=== PATIENT | male | born 1980 | race Caucasian/White ===

== ENCOUNTER → 2017-04-05 13:25 | Outpatient (POV) | payer OTHER, SELFPAY | PROVIDERS: Visit Provider Dermatology | DX: Z00.00 Encounter for general adult medical examination without abnormal findings (principal) ==

== ENCOUNTER 2018-03-15 13:10 | Outpatient (CLI) | payer SELFPAY | END 2018-03-15 14:32 | disposition home or self-care (01) | PROVIDERS: Visit Provider Nurse Practitioner Family | DX: Z02.4 Encounter for examination for driving license (principal) ==

== ENCOUNTER → 2019-05-22 09:45 | Outpatient (CLI) | payer SELFPAY ==
[2019-05-22 10:51] LABS: Basophils # 0.1 K/mm3 (0-0.2); Basophils % 0.6 % (0.1-2.0); Eosinophils # 0.3 K/mm3 (0.0-0.4); Eosinophils % 3.5 % (0.1-12.0); Hematocrit 44.6 % (42.0-52.0); Hemoglobin 14.4 g/dL (14.1-18.0); Lymphocytes # 2.9 K/mm3 (0.7-4.5); Lymphocytes % 35.1 % (10-50); Mean Corpuscular HGB Conc 32.3 g/dL (31.8-35.4); Mean Corpuscular Hemoglobin 30.3 pg (27.0-31.2); Mean Corpuscular Volume 93.8 fl (80-94); Monocytes # 0.5 K/mm3 (0.1-1.0); Monocytes % 5.9 % (1.7-9.3); Neutrophils # 4.6 K/mm3 (1.8-7.8); Neutrophils % 54.9 % (37.0-80.0); Platelet Count 213 K/mm3 (142-424); Red Blood Count 4.75 M/mm3 (4.60-6.20); White Blood Count 8.4 K/mm3 (4.8-10.8)
[2019-05-22 11:33] LABS: Chloride 105 mmol/L (98-107); Sodium 141 mmol/L (136-145)
[2019-05-22 11:34] LABS: Potassium 5.1 mmoL/L (3.5-5.1)
[2019-05-22 11:36] LABS: Alanine Aminotransferase 35 U/L (12-78); Albumin Level 4.3 g/dl (3.5-5.0); Albumin/Globulin Ratio 1.5 (1.1-1.8); Alkaline Phosphatase 78 U/L (38-126); Anion Gap 12.1 mEq/L (5-15); Aspartate Amino Transferase 31 U/L (17-59); Bilirubin,Total 0.3 mg/dl (0.2-1.3); Blood Urea Nitrogen 13 mg/dl (9-20); Calcium 9.1 mg/dl (8.4-10.2); Carbon Dioxide 29 mmol/L (22.0-30.0); Cholesterol 161 mg/dl (140-200); Estimated Glomerular Filt Rate 93 ml/min (>60); GFR (African American) 113 ML/MIN (>60); Globulin 2.8 g/dL (1.3-3.2); Glucose 89 mg/dl (74-100); Total Protein,Serum 7.1 g/dl (6.3-8.2); Triglycerides 152 mg/dl (30-150); VLDL Cholesterol 30 mg/dL (0-40)
[2019-05-22 11:37] LABS: Chol/HDL Ratio 4.9 (1-3.5); HDL Cholesterol 33 mg/dl (40-60); Magnesium 2.1 mg/dl (1.6-2.3)
[2019-05-22 11:47] LABS: Direct LDL Cholesterol 116.84 mg/dL (100-129)
[2019-05-22 12:04] LABS: Troponin I < 0.01 ng/ml (0.00-0.034)
[2019-05-22 12:06] LABS: Thyroid Stimulating Hormone 1.28 uIU/mL (0.465-4.68)
[2019-05-23 12:03] LABS: Myoglobin <21 ng/mL (28-72)
== END ==
PROVIDERS: Visit Provider Family Medicine
DX: R07.9 Chest pain, unspecified (principal)
CPT/HCPCS: 36415; 80053; 80061; 83735; 83874; 84443; 84484; 85025

== ENCOUNTER → 2019-05-29 09:24 | Outpatient (CLI) | payer BC, SELFPAY ==
--- NOTE | 2019-05-29 10:00 | CA_ITS ---
APPROVED REPORT Exam: Exercise Treadmill Technologist: Eufemia Caraballo, Ht: 6 ft 1 in Wt: 282 lbs BSA: 2.49 m2 HR: 70 bpm BP: 119/78 mmHg Rhythm: NORMAL SINUS RHYTHM Indications: CP Medical History Cardiac Risk Factors: Smoking Stress Test Details Test: Nohemi HR Resting HR: 81 bpm Max Heart Rate (APMHR): 180 bpm Max HR Achieved: 144 bpm Target HR (85% APMHR): 153 bpm % of APMHR: 80 Recovery HR: 115 bpm BP Resting BP: 119.0/78.0 mmHg Max BP: 152.0/75.0 mmHg Recovery BP: 160.0/80.0 mmHg ECG Resting ECG: NORMAL SINUS RHYTHM Clinical Exercise duration: 07:29 min Highest Stage Achieved: Exercise capacity: 10.1 METs Stress ECG Conclusion PATIENT EXERCISED 7:29 ON NOHEMI PROTOCOL STOPPING DUE TO SOA AND FATIGUE. PATIENT HAD MILD VAGUE CHEST DISCOMFORT IMMEDIATELY POST EXERCISE. NO ARRHYTHMIAS/ECTOPY. NORMAL ST RESPONSE TO EXERCISE. NORMAL GXT TO HR ACHIEVED(80% OF PM). GXT ONLY( NO IMAGING) Electronically signed by : Charles Carrera, 06/02/2019 08:04:55
== END ==
PROVIDERS: PCP Family Medicine; Visit Provider Nurse Practitioner Family
DX: R07.9 Chest pain, unspecified (principal)
CPT/HCPCS: 93017

== ENCOUNTER → 2020-01-17 11:53 | Outpatient (CLI) | payer BC, SELFPAY ==
--- NOTE | 2020-01-17 12:01 | XR_ITS ---
PROCEDURE: XR CHEST PORTABLE CLINICAL HISTORY: COVID 19 Fever COMPARISON: No exams were available for comparison FINDINGS: The cardiomediastinal silhouette and pulmonary vascularity are within normal limits. The lungs are clear without infiltrates, suspicious nodules, or pleural effusions. No acute bony abnormalities. IMPRESSION: No acute findings. Dictated by: Seth Angela MD 01/17/2020 12:26 Seth Angela MD in [place] 01/17/2020 12:26
[2020-01-18 08:41] LABS: Covid-19 Nasal PCR Sendout UK Not Detected
== END ==
PROVIDERS: PCP Family Medicine; Visit Provider Family Medicine
DX: Z03.818 Encounter for observation for suspected exposure to other biological agents ruled out (principal)
CPT/HCPCS: 71045; U0003

== ENCOUNTER → 2020-11-28 18:54 | Outpatient (CLI) | payer BC, SELFPAY | PROVIDERS: PCP Family Medicine; Visit Provider Physician Assistant | DX: Z20.822 Contact with and (suspected) exposure to COVID-19 (principal) | CPT/HCPCS: U0003 ==

== ENCOUNTER → 2022-10-12 11:49 | Outpatient (CLI) | payer OTHER, SELFPAY ==
--- NOTE | 2022-10-12 12:03 | XR_ITS ---
FINAL REPORT CLINICAL HISTORY: PAIN FINDINGS: LEFT KNEE SERIES Three views of the left knee were obtained. There is no acute fracture or dislocation. There are postoperative changes of an anterior cruciate ligament repair. There is mild degenerative change present. There is a probable 11 mm loose body in the intercondylar region. There is no soft tissue abnormality. IMPRESSION: Postoperative changes as stated above. Mild degenerative change. Probable 11 m loose body in the intercondylar region. Reviewed, Interpreted and Dictated by Fransisco Polanco III, MD Transcribed by Beth Nichole Authenticated and [facility]
== END ==
PROVIDERS: PCP Family Medicine; Visit Provider Nurse Practitioner Family
DX: M25.562 Pain in left knee (principal)
CPT/HCPCS: 73562

== ENCOUNTER 2022-10-12 12:38 | Outpatient (RCR) | payer OTHER, SELFPAY | END 2022-10-12 13:45 | disposition home or self-care (01) | LOC: PT 12:38 | PROVIDERS: Visit Provider Nurse Practitioner Family | DX: M25.562 Pain in left knee (principal); M25.462 Effusion, left knee; Z98.890 Other specified postprocedural states | CPT/HCPCS: 97760 ==

== ENCOUNTER 2022-11-20 11:04 | Emergency (ER) | payer OTHER, SELFPAY ==
[2022-11-20 11:13] VITALS: BP 129/90; PULSE 75; RESP 19; TEMP 37.2; O2SAT 97; BMI 39.2
--- NOTE | 2022-11-20 11:29 | XR_ITS ---
FINAL REPORT CLINICAL HISTORY: injury COMPARISON: None FINDINGS: There is no acute fracture or dislocation. The joint spaces are intact. There is no soft tissue abnormality. A small plantar calcaneal spur is present. IMPRESSION: No acute fracture Reviewed, Interpreted and Dictated by Daniel Washington MD Transcribed by Marita Blackwood Authenticated and [facility]
--- NOTE | 2022-11-20 11:54 | PC.NURSE ---
rounded on pt at this time, pt states no needs
--- NOTE | 2022-11-20 12:53 | HMH.EDGENADL ---
Discharge Plan Disposition Patient Disposition: Home, Self-Care Condition: Good Referrals Follow up/Referrals: Artie Acharya MD [Primary Care Provider] - See instructions Roger Goncalves DO [Staff Physician] - See instructions Activity Restrictions/Add. Instructions Additional Instructions/Restrictions: You were evaluated in the emergency department today. Please follow-up with orthopedics for reassessment should your foot pain persist. At this time, no broken bones are noted on x-ray. Take Tylenol and ibuprofen at home as needed for pain. Use the crutches provided to you as needed if you have trouble bearing weight. Rest, ice, and elevate the area is much as possible. We are providing you with a hard sole shoe to use at home as needed for pain with walking. Return to the emergency department for any new or worsening symptoms. Clinical Impressions Clinical Impression: Contusion of foot, right, Crush injury of right foot Stand Alone Forms Stand Alone Forms: Work/School Release Instructions Patient Instructions: DI for Foot Pain, DI for Foot Sprain Discharge ED Provider: Larisa Ballard General Adult HPI General Chief complaint: Extremity Injury, Lower Stated complaint: [id number] right foot pain Time Seen by Provider: 11/20/22 11:57 Mode of Arrival: Wheelchair Source of Information: Patient Limitations: No Limitations Description of Symptoms (Recalled from ER Triage Doc. by RN): 42 yo M prsents to ED with c/o right foot pain. 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 there was a piece of epquipement that was being hauled by a bobcat. the piece of equipment fell off the bobcat and landed on the middle part of his right foot History of Present Illness HPI narrative: This patient is a 42-year-old male who denies significant past medical history presented to the emergency department for evaluation with concern for right foot pain. 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 Most of his pain is on the medial aspect of his forefoot just proximal to his big toe. He denies any other injuries. He was well prior to this. His pain is currently under control. His pain worsens with any attempted weightbearing. He denies any numbness, tingling, or other issues. No open wounds noted. Related Data Allergies Allergy/AdvReac Type Severity Reaction Status Date / Time NO KNOWN ALLERGIES Allergy Uncoded 03/20/17 14:35 [facility] Disclaimer: The information contained in this section may have been updated after the patient was seen, as this information can be updated by other users. Social History Smoking Status: Current every day smoker alcohol intake: never current occupational status: employed Travel in the last 8 weeks: None ROS Obtained: Yes All systems reviewed & no additional complaints except as documented Physical Exam General General appearance: alert and in no apparent distress Head Head exam: atraumatic and normocephalic Eye Eye exam: Present normal appearance, PERRL and EOMI ENT ENT exam: Present normal exam, normal oropharynx, mucous membranes moist and normal external ear exam Neck Neck exam: Present normal inspection, full ROM and trachea midline; Absent tenderness Chest Chest inspection: Present normal inspection and symmetric chest wall rise; Absent tenderness Respiratory Respiratory exam: Present normal lung sounds bilaterally; Absent respiratory distress, wheezes, stridor or accessory muscle use Cardiovascular Cardiovascular exam: Present regular rate and normal rhythm Abdominal Exam Abdominal exam: Present soft; Absent distention, tenderness or guarding Extremities Exam Extremities exam: Present normal inspection, full ROM and normal capillary refill; Absent tenderness or edema Expanded Lower Extremity Exam Right: Foot/toe exam: Present tenderness,
--- NOTE | 2022-11-20 12:54 | PC.NURSE ---
contacted rad to check on status of xray reading, reports is still in a locked status.
[2022-11-20 13:44] VITALS: BP 125/78; PULSE 80; RESP 17; TEMP 36.8; O2SAT 98
--- NOTE | 2022-12-05 02:42 | PC.NURSE ---
chart accessed for demographics for ortho papers
== END 2022-11-20 13:45 | disposition home or self-care (01) ==
PROVIDERS: Emergency Provider Emergency Medicine; PCP Family Medicine
DX: S97.81XA Crushing injury of right foot, initial encounter (principal); S90.31XA Contusion of right foot, initial encounter; W20.8XXA Other cause of strike by thrown, projected or falling object, initial encounter; Y99.0 Civilian activity done for income or pay; F17.200 Nicotine dependence, unspecified, uncomplicated
CPT/HCPCS: 73620; 99283

== ENCOUNTER 2024-11-04 11:46 | Emergency (ER) | payer OTHER, SELFPAY ==
[2024-11-04] VITALS (8 sets, daily range): BP systolic 106–140; BP diastolic 73–96; PULSE 65–76; RESP 16; TEMP 36.9; O2SAT 95–100; BMI 38.5
--- NOTE | 2024-11-04 11:58 | HMH.EDGENADL ---
Discharge Plan Disposition Patient Disposition: Home, Self-Care Condition: Good Referrals Follow up/Referrals: Provider,Referral, [Referring, Medical] - See instructions Activity Restrictions/Add. Instructions Additional Instructions/Restrictions: Please follow-up with your family physician in the upcoming days, please follow-up with with repeat x-rays if symptomatology persist more than 7 to 10 days, please utilize ibuprofen Tylenol as needed for symptomatic relief. Clinical Impressions Clinical Impression: Fall, Costochondritis, Muscle strain of left forearm Instructions Patient Instructions: DI for Costochondritis, DI for Forearm Muscle Strain Print Language Print Language: Kenyan Discharge ED Provider: Sven Coker General Adult HPI <ROSALINDA Penn - Last Filed: 11/04/24 14:48> General Chief complaint: Fall Stated complaint: WC fell off tractor, left arm 11/04/2024 Time Seen by Provider: 11/04/24 11:50 Mode of Arrival: Ambulatory Source of Information: Patient Limitations: No Limitations History of Present Illness HPI narrative: 44 year old male presents to the emergency department after falling off this stationary tractor about 1-2 hours ago. Patient states that he was cleaning off the back when his foot slipped and fell off and onto the ground. He states the tractor is about 3 feet off the ground. He states that he fell on his right side then rolled onto his left side. He complains of right side/rib pain as well as left forearm/upper arm pain. He denies numbness or tingling on his right arm and hand but states there is some tingling on his left arm. He denies hitting is head, loss of consciousness, falling on an outstretched hand, chest pain, shortness of breath, headache, no presyncopal or syncopal event, no abdominal pain, no upper back pain, no neck pain, no lower back pain, no other upper or lower extremity injury, no urinary bladder or bowel dysfunction, no saddle anesthesia. He has no pertinent past medical history, takes no other medications at home, however states he does not see a doctor much. He states he smokes 1ppd, denies alcohol or illicit drug use. Initial triage vitals are unremarkable. Please note that above description of symptoms, in this electronic medical record under categorization of recalled from ER triage doctor by RN are reflective of an initial nursing assessment, however, is not reflective of my full history and physical exam that was personally taken and clarified. Consequentially, this preceding description of symptoms, which may include the patient's categorized chief complaint in the EMR, do not reflect my personal clinical impression, and the ultimate description of history of present illness and patient stated complaints should be deferred to this section of the note. Unless stated otherwise or congruent with this section of the note, additional signs, symptoms, or incongruence should be interpreted as inaccurate with my clinical impression. Onset (ago): hour(s) Related Data Allergies Allergy/AdvReac Type Severity Reaction Status Date / Time No Known Allergies Allergy Verified 11/04/24 12:38 [facility] <ROSALINDA Penn - Last Filed: 11/04/24 14:48> [facility] Disclaimer: The information contained in this section may have been updated after the patient was seen, as this information can be updated by other users. Social History (Updated 11/20/22 @ 13:31 by Larisa Ballard DO) Smoking Status: Current every day smoker alcohol intake: never current occupational status: employed Travel in the last 8 weeks?: None Have you lived/traveled outside US in past 30 days?: No Contact w/someone who lives/traveled outside US past 30 days?: No Exposure to someone with infectious disease in past 14 days?: No Do you have a fever (greater than 100.4 F or 38 C)?: No Have you tested positive for COVID-19?: No Exposed to someone with COVID-19 in past 14 days?: No Do you have a sore throat?: No Do you have a cough?: No Do you have any weakness?: No Do you have any diarrhea?: No Are you experiencing any unusual bleeding?: No Do you have any muscle aches/pain?: No Do you have any abdominal pain?: No Are you experiencing loss of taste or smell?: No Other Medical History Have you received the Flu Vaccine for this season: No Have you received the Pneumonia Vaccine: No <ROSALINDA Penn - Last Filed: 11/04/24 14:48> ROS Obtained: Yes All systems reviewed & no additional complaints except as documented Physical Exam <ROSALINDA Penn - Last Filed: 11/04/24 14:48> General General appearance: alert and in no apparent distress Head Head exam: atraumatic and normocephalic Eye Eye exam: Present PERRL and EOMI ENT ENT exam: Present mucous membranes moist Neck Neck exam: Present normal inspection Chest Chest inspection: Present normal inspection, symmetric chest wall rise, tenderness and other (Mild tenderness palpation of the right chest wall/right rib area) Respiratory Respiratory exam: Present normal lung sounds bilaterally; Absent respiratory distress Cardiovascular Cardiovascular exam: Present regular rate and normal rhythm Abdominal Exam Abdominal exam: Present soft; Absent distention, tenderness, guarding, rebound, rigidity or trauma Extremities Exam Extremities exam: Present normal inspection, tenderness and other (Has some mild pain palpation to the volar aspect of the left forearm, no obvious open fracture or traumatic deformity, patient has some pain palpation to the anterior humeral region, no pain with patient of the shoulder joint, wrist, has good finger opposition, has difficulty making a fist I do thin); Absent full ROM or edema Back Exam Back exam: Present normal inspection and full ROM; Absent tenderness, paraspinal tenderness or vertebral tenderness Neurological Exam Neurological exam: Present alert and oriented X3 Psychiatric Psychiatric exam: Present normal affect Skin Skin exam: Present warm and dry Medical Decision Making <ROSALINDA Penn - Last Filed: 11/04/24 14:48> Medical Records Medical records reviewed: Yes I reviewed the patient's medical records. Screening: Per USPSTF and CDC recommendations, given the prevalence of disease in our region, it is our hospital?s policy to screen for HIV and viral Hepatitis for all patients aged 18 and over and those with ongoing risk factors. Silvano Inquiry Pt receiving controlled substance: No Silvano was queried for this patient: No Vital Signs: 11/04/24 11:53 11/04/24 11:55 11/04/24 12:48 Temperature 98.5 F Temperature Source Oral Pulse Rate 74 Pulse Rate [Right Radial] 75 Respiratory Rate 16 Blood Pressure 140/96 H Blood Pressure [Right Arm] 140/96 H Blood Pressure Mean [Right Arm] 110 Blood Pressure Source Blood Pressure Source [Right Arm] Automatic Cuff Blood Pressure Position Blood Pressure Position [Right Arm] Sitting 02 Sat by Pulse Oximetry 100 98 97 Oxygen Delivery Method Room Air Room Air 11/04/24 13:00 11/04/24 13:30 11/04/24 14:00 Temperature Temperature Source Pulse Rate 76 65 68 Pulse Rate [Right Radial] Respiratory Rate Blood Pressure 114/86 117/73 106/80 L Blood Pressure [Right Arm] Blood Pressure Mean [Right Arm] Blood Pressure Source Blood Pressure Source [Right Arm] Blood Pressure Position Blood Pressure Position [Right Arm] 02 Sat by Pulse Oximetry 95 96 96 Oxygen Delivery Method 11/04/24 14:30 11/04/24 14:51 Temperature 98.5 F Temperature Source Oral Pulse Rate 70 72 Pulse Rate [Right Radial] Respiratory Rate 16 Blood Pressure 122/84 122/84 Blood Pressure [Right Arm] Blood Pressure Mean [Right Arm] Blood Pressure Source Automatic Cuff Blood Pressure Source [Right Arm] Blood Pressure Position Sitting Blood Pressure Position [Right Arm] 02 Sat by Pulse Oximetry 97 Oxygen Delivery Method Room Air Lab Data Lab results reviewed: Yes I reviewed the patient's lab results. Lab Results 11/04/24 12:00: WBC 9.2, RBC 4.92, Hgb 15.4, Hct 44.1, MCV 89.6, MCH 31.3 H, MCHC 34.9, RDW 13.1, Plt Count 243, MPV 11.5 H, Neut % (Auto) 58.7, Lymph % (Auto) 32.2, [place] % (Auto) 6.0, Eos % (Auto) 1.8, Baso % (Auto) 0.8, Neut # (Auto) 5.4, Lymph # (Auto) 3.0, [place] # (Auto) 0.6, Eos # (Auto) 0.2, Baso # (Auto) 0.1, Sodium 139, Potassium 4.7, Chloride 108 H, Carbon Dioxide 22, Anion Gap 13.7, BUN 13, Creatinine 0.80, Estimated Creat Clear 218, Estimated GFR 105, Est GFR ( Amer) 126, Glucose 104 H, Calcium 9.9, Total Bilirubin 0.6, AST 41, ALT 44, Alkaline Phosphatase 98, Total Protein 8.2, Albumin 4.7, Globulin 3.5 H, Albumin/Globulin Ratio 1.3, HCV Ab RAHUL w/Rflx PCR Qn Negative, HIV Ag/Ab Combo Qual Negative 11/04/24 12:00 11/04/24 12:00 Orders (Tests/Meds): ED MEDICATIONS Discontinued Medications Generic Name Dose Route Start Last Admin Trade Name Freq PRN Reason Stop Dose Admin Acetaminophen 1,000 mg 11/04/24 12:24 11/04/24 12:44 Acetaminophen 1,000mg/100ml Vial IV 11/04/24 12:25 1,000 mg ONCE ONE Administration Ketorolac Tromethamine 15 mg 11/04/24 12:24 11/04/24 12:44 Ketorolac 30mg/Ml Vial IV 11/04/24 12:25 15 mg ONCE ONE Administration ORDERS Category Date Time Status CT chest wo con Stat Cat Scan 11/04/24 12:24 Completed XR forearm LT 2V Stat Exams 11/04/24 12:22 Completed XR humerus LT Stat Exams 11/04/24 12:22 Completed Complete Blood Count Auto Diff Stat Lab 11/04/24 12:00 Completed Comprehensive Metabolic Panel Stat Lab 11/04/24 12:00 Completed HIV Combo Stat Lab 11/04/24 12:00 Completed Hepatitis C Ab Qual. W/ RFX Stat Lab 11/04/24 12:00 Completed Medical Decision Narrative: 44-year-old male presents emergency department after a fall off a tractor complaining of left arm pain and right-sided rib pain, differential diagnosis include but not limited to, rib fracture, costochondritis, pulmonary contusion, other soft tissue injury, arm sprain/strain, forearm fracture, humerus fracture among others. I discussed the patient's case with the attending physician Will obtain basic laboratory studies, will give 1000 mg IV Tylenol and 15 mg IV Toradol, will obtain CT chest without contrast for further evaluation as well as x-ray of the left forearm and left humerus for further evaluation/characterization. CBC unremarkable CMP unremarkable I reviewed the patient's left humerus x-ray, forearm x-ray along with the corresponding radiologic reports, no acute bony abnormalities. I reviewed the patient's CT chest without contrast along the corresponding radiologic report, no acute findings. I discussed this results with the patient at the bedside, recommend ice ibuprofen Tylenol, strict ED return precautions. Patient voiced understanding and agreed the Contreet plan/discharge plan. Patient remained hemodynamically stable at his time in the Emergency Department think more likely than not soft tissue injury. <Sven Coker MD - Last Filed: 11/04/24 17:57> Vital Signs: 11/04/24 11:53 11/04/24 11:55 11/04/24 12:48 Temperature 98.5 F Temperature Source Oral Pulse Rate 74 Pulse Rate [Right Radial] 75 Respiratory Rate 16 Blood Pressure 140/96 H Blood Pressure [Right Arm] 140/96 H Blood Pressure Mean [Right Arm] 110 Blood Pressure Source Blood Pressure Source [Right Arm] Automatic Cuff Blood Pressure Position Blood Pressure Position [Right Arm] Sitting 02 Sat by Pulse Oximetry 100 98 97 Oxygen Delivery Method Room Air Room Air 11/04/24 13:00 11/04/24 13:30 11/04/24 14:00 Temperature Temperature Source Pulse Rate 76 65 68 Pulse Rate [Right Radial] Respiratory Rate Blood Pressure 114/86 117/73 106/80 L Blood Pressure [Right Arm] Blood Pressure Mean [Right Arm] Blood Pressure Source Blood Pressure Source [Right Arm] Blood Pressure Position Blood Pressure Position [Right Arm] 02 Sat by Pulse Oximetry 95 96 96 Oxygen Delivery Method 11/04/24 14:30 11/04/24 14:51 Temperature 98.5 F Temperature Source Oral Pulse Rate 70 72 Pulse Rate [Right Radial] Respiratory Rate 16 Blood Pressure 122/84 122/84 Blood Pressure [Right Arm] Blood Pressure Mean [Right Arm] Blood Pressure Source Automatic Cuff Blood Pressure Source [Right Arm] Blood Pressure Position Sitting Blood Pressure Position [Right Arm] 02 Sat by Pulse Oximetry 97 Oxygen Delivery Method Room Air Lab Data Lab Results 11/04/24 12:00: WBC 9.2, RBC 4.92, Hgb 15.4, Hct 44.1, MCV 89.6, MCH 31.3 H, MCHC 34.9, RDW 13.1, Plt Count 243, MPV 11.5 H, Neut % (Auto) 58.7, Lymph % (Auto) 32.2, [place] % (Auto) 6.0, Eos % (Auto) 1.8, Baso % (Auto) 0.8, Neut # (Auto) 5.4, Lymph # (Auto) 3.0, [place] # (Auto) 0.6, Eos # (Auto) 0.2, Baso # (Auto) 0.1, Sodium 139, Potassium 4.7, Chloride 108 H, Carbon Dioxide 22, Anion Gap 13.7, BUN 13, Creatinine 0.80, Estimated Creat Clear 218, Estimated GFR 105, Est GFR ( Amer) 126, Glucose 104 H, Calcium 9.9, Total Bilirubin 0.6, AST 41, ALT 44, Alkaline Phosphatase 98, Total Protein 8.2, Albumin 4.7, Globulin 3.5 H, Albumin/Globulin Ratio 1.3, HCV Ab RAHUL w/Rflx PCR Qn Negative, HIV Ag/Ab Combo Qual Negative Orders (Tests/Meds): ED MEDICATIONS Discontinued Medications Generic Name Dose Route Start Last Admin Trade Name Fifi PRN Reason Stop Dose Admin Acetaminophen 1,000 mg 11/04/24 12:24 11/04/24 12:44 Acetaminophen 1,000mg/100ml Vial IV 11/04/24 12:25 1,000 mg ONCE ONE Administration Ketorolac Tromethamine 15 mg 11/04/24 12:24 11/04/24 12:44 Ketorolac 30mg/Ml Vial IV 11/04/24 12:25 15 mg ONCE ONE Administration ORDERS Category Date Time Status CT chest wo con Stat Cat Scan 11/04/24 12:24 Completed XR forearm LT 2V Stat Exams 11/04/24 12:22 Completed XR humerus LT Stat Exams 11/04/24 12:22 Completed Complete Blood Count Auto Diff Stat Lab 11/04/24 12:00 Completed Comprehensive Metabolic Panel Stat Lab 11/04/24 12:00 Completed HIV Combo Stat Lab 11/04/24 12:00 Completed Hepatitis C Ab Qual. W/ RFX Stat Lab 11/04/24 12:00 Completed Medical Decision Narrative: 44-year-old male presents emergency department after a fall off a tractor complaining of left arm pain and right-sided rib pain, differential diagnosis include but not limited to, rib fracture, costochondritis, pulmonary contusion, other soft tissue injury, arm sprain/strain, forearm fracture, humerus fracture among others. I discussed the patient's case with the attending physician Will obtain basic laboratory studies, will give 1000 mg IV Tylenol and 15 mg IV Toradol, will obtain CT chest without contrast for further evaluation as well as x-ray of the left forearm and left humerus for further evaluation/characterization. CBC unremarkable CMP unremarkable I reviewed the patient's left humerus x-ray, forearm x-ray along with the corresponding radiologic reports, no acute bony abnormalities. I reviewed the patient's CT chest without contrast along the corresponding radiologic report, no acute findings. I discussed this results with the patient at the bedside, recommend ice ibuprofen Tylenol, strict ED return precautions. Patient voiced understanding and agreed the Contreet plan/discharge plan. Patient remained hemodynamically stable at his time in the Emergency Department think more likely than not soft tissue injury. I was consulted by the ADELINA, and we discussed the complexity of the problems being addressed. I approve the treatment and management plan for this patient's care in the emergency department, thus performing a substantive portion of the medical decision making. Sven Coker MD Critical Care <ROSALINDA Penn - Last Filed: 11/04/24 14:48> Critical Care Time Critical Care Time: No
--- NOTE | 2024-11-04 12:22 | XR_ITS ---
FINAL REPORT CLINICAL HISTORY: Left arm injury after falling off a tractor FINDINGS: LEFT FOREARM 2 views were obtained. There is no acute fracture or dislocation. Visualized joint spaces are normally aligned. Soft tissues are unremarkable. IMPRESSION: No acute bony abnormality. Reviewed, Interpreted and Dictated by Daniel Washington MD Transcribed by Jana Garcia Authenticated and [facility]
--- NOTE | 2024-11-04 12:22 | XR_ITS ---
FINAL REPORT CLINICAL HISTORY: Left arm injury after falling off a tractor FINDINGS: LEFT HUMERUS 2 views were obtained. There is no acute fracture or dislocation. Visualized joint spaces are normally aligned. Soft tissues are unremarkable. IMPRESSION: No acute bony abnormality. Reviewed, Interpreted and Dictated by Daniel Washington MD Transcribed by Jana Gracia Authenticated and [facility]
--- NOTE | 2024-11-04 12:24 | CT_ITS ---
FINAL REPORT TECHNIQUE: Axial imaging of the chest was obtained without contrast. Reformatted images were also obtained and reviewed.This study was performed with techniques to keep radiation doses as low as reasonably achievable, (ALARA). Individualized dose reduction technique using automated exposure control or adjustment of mA and/or kV according to the patient's size were employed. CLINICAL HISTORY: Right-sided rib pain after fall FINDINGS: There is no axillary adenopathy. There is no hilar or mediastinal mass or adenopathy. Heart size is normal. There is no pericardial or pleural effusion. Limited images of the upper abdomen are unremarkable. Scattered calcified granulomas are seen. No suspicious infiltrate or nodule is identified on lung window images. No acute bony abnormality is identified. There is no pneumothorax. IMPRESSION: No acute process. Reviewed, Interpreted and Dictated by Daniel Washington MD Transcribed by Jana Garcia Authenticated and [facility]
[2024-11-04 12:27] LABS: Hematocrit 44.1 % (42.0-52.0); Hemoglobin 15.4 g/dL (14.1-18.0); Immature Granulocytes % 0.5 %; Mean Corpuscular HGB Conc 34.9 g/dL (31.8-35.4); Mean Corpuscular Hemoglobin 31.3 pg (27.0-31.2); Mean Corpuscular Volume 89.6 fl (80-94); Nucleated Red Blood Cells % 0 %; Platelet Count 243 K/mm3 (142-424); Red Blood Count 4.92 M/mm3 (4.60-6.20); Red Cell Distribution Width-SD 42.8 fL; White Blood Count 9.2 K/mm3 (4.8-10.8)
[2024-11-04 12:43] LABS: Alanine Aminotransferase 44 U/L (12-78); Albumin Level 4.7 g/dl (3.5-5.0); Albumin/Globulin Ratio 1.3 (1.1-1.8); Alkaline Phosphatase 98 U/L (38-126); Anion Gap 13.7 mEq/L (5-15); Aspartate Amino Transferase 41 U/L (17-59); Bilirubin,Total 0.6 mg/dl (0.2-1.3); Blood Urea Nitrogen 13 mg/dl (9-20); Calcium 9.9 mg/dl (8.4-10.2); Carbon Dioxide 22 mmol/L (22.0-30.0); Chloride 108 mmol/L (98-107); Creatinine Clearance Estimated 218 mL/min (50-200); Creatinine,Serum 0.80 mg/dl (0.66-1.25); Estimated Glomerular Filt Rate 105 ml/min (>60); GFR (African American) 126 ML/MIN (>60); Globulin 3.5 g/dL (1.3-3.2); Glucose 104 mg/dl (74-100); Potassium 4.7 mmoL/L (3.5-5.1); Sodium 139 mmol/L (136-145); Total Protein,Serum 8.2 g/dl (6.3-8.2)
[2024-11-04] MEDS: ACETAMINOPHEN 1,000MG/100ML VIAL 1000 MG IV (12:44)
[2024-11-04] MEDS: KETOROLAC 30MG/ML VIAL 15 MG IV (12:44)
[2024-11-04 13:32] LABS: Hepatitis C Ab Qual. W/ RFX NEGATIVE (Negative)
== END 2024-11-04 14:53 | disposition home or self-care (01) ==
PROVIDERS: Physician Assistant; Emergency Provider Student in an Organized Health Care Education/Training Program; PCP Family Medicine
DX: R07.89 Other chest pain (principal); M94.0 Chondrocostal junction syndrome [Tietze]; S56.911A Strain of unspecified muscles, fascia and tendons at forearm level, right arm, initial encounter; V84.4XXA Person injured while boarding or alighting from special agricultural vehicle, initial encounter
CPT/HCPCS: 71250; 73060; 73090; 80053; 85025; 86803; 87389; 96374; 96375; 99285; J0131; J1885